=== PATIENT | male | born 1990 | race Two or more races ===

== ENCOUNTER 2024-12-17 20:22 | Emergency (ER) | payer MEDICAID ==
[~2024-12-17] VITALS: Ht 177.8 cm; Wt 92.3 kg
[2024-12-17 20:44] VITALS: BP 124/78; PULSE 77; RESP 18; TEMP 98.2; O2SAT 99
[2024-12-17 21:20] LABS: PLATELET COUNT (AUTO) 298 K/uL (150-450); RED BLOOD CELL COUNT(AUTO) 5.67 MIL/uL (4.50-5.90); RED CELL DISTRIBUTION WIDTH 13.5 % (11.5-14.5); WHITE BLOOD COUNT (AUTO) 8.0 K/uL (4.5-11.0)
[2024-12-17 21:28] LABS: CALCIUM, TOTAL 8.8 mg/dL (8.8-10.5); CREATININE 0.79 mg/dL (0.60-1.30); GLOMERULAR FILTR. RATE CALC > 60 mL/min (>60); GLUCOSE,RANDOM 97 mg/dL (70-110); SODIUM SERUM 138 mmol/L (136-145); UREA NITROGEN, BLOOD 14 mg/dL (7-18)
[2024-12-17] MEDS ORDERED: HYDROX5L PO (22:55)
== END 2024-12-17 23:36 | disposition home or self-care (01) ==
LOC: EMS 20:22
DX: F41.9 Anxiety disorder, unspecified (principal); F32.A Depression, unspecified; F12.90 Cannabis use, unspecified, uncomplicated; Z87.19 Personal history of other diseases of the digestive system; Z88.0 Allergy status to penicillin
CPT/HCPCS: 99283; 80048; 85025; 36415; G0480